=== PATIENT | male | born 1970 | race Caucasian/White ===

== ENCOUNTER 2022-09-10 22:33 | Emergency (ER) | payer OTHER, SELFPAY ==
[2022-09-10 22:36] VITALS: BP 129/79; PULSE 84; RESP 16; TEMP 36.2; O2SAT 99; BMI 25.4
--- NOTE | 2022-09-10 22:49 | DI.RAD.S_ITS ---
PROCEDURE: XR CHEST 1V INDICATIONS: chest pain TECHNIQUE: One view of the chest was acquired. COMPARISON: None. FINDINGS: Surgical changes and devices: None. Lungs and pleura: Lungs are clear. No pleural effusions or pneumothorax. Mediastinum: Mediastinal contours appear normal. Heart size is normal. Bones and chest wall: No suspicious bony lesions. Overlying soft tissues appear unremarkable. IMPRESSION: Portable chest within normal limits. Dictated by: Jonathan So M.D. on 09/10/2022 at 22:25 Approved by: Jonathan So M.D. on 09/10/2022 at 22:25
[2022-09-10 22:51] VITALS: PULSE 75; O2SAT 99
[2022-09-10 22:53] VITALS: BP 141/93; PULSE 80; O2SAT 98
[2022-09-10] MEDS: ASPIRIN 81 MG CHEW TAB 324 MG PO (22:58)
[2022-09-10 23:00] VITALS: PULSE 84; RESP 13; O2SAT 97
[2022-09-10 23:12] LABS: Prothrombin Time 11.1 SECONDS (10.1-12.7)
[2022-09-10 23:13] LABS: Add Manual Diff / Slide Review NO; Basophils Absolute Auto 100 /uL (0-100); Basophils Percent Auto 1.1 % (0-2); Eosinophils Absolute Auto 400 /uL (0-450); Eosinophils Percent Auto 6.1 % (2-4); Hematocrit 41.4 % (41-53); Hemoglobin 13.9 g/dL (13.5-17.5); Lymphocytes Absolute Auto 3200 /uL (1100-4500); Lymphocytes Percent Auto 47.8 % (25-40); Mean Corpuscular HGB Conc 33.5 % (30-36); Mean Corpuscular Hemoglobin 28.2 PG (26-34); Mean Corpuscular Volume 84.1 fL (80-100); Monocytes Absolute Auto 500 /uL (0-900); Monocytes Percent Auto 7.8 % (3-14); Neutrophils Absolute Auto 2500 /uL (1500-7000); Neutrophils Percent Auto 37.2 % (50-75); Platelet Count 384 X10^3/uL (150-400); Red Blood Cell Count 4.92 X10^6/uL (4.5-5.9); Red Cell Distribution Width 15.4 % (11.6-14.8); White Blood Cell Count 6.7 X10^3/uL (4.5-11.0)
[2022-09-10 23:15] LABS: PTT Partial Thromboplastin Tim 32 SECONDS (26-36)
[2022-09-10 23:18] LABS: Alanine Aminotransferase 20 IU/L (<50); Albumin 4.3 g/dL (3.5-5.0); Albumin Globulin Ratio 1.2 (1.0-2.8); Alkaline Phosphatase 96 U/L (38-126); Aspartate Aminotransferase 26 IU/L (17-59); BUN Creatinine Ratio 17.2 (6-22); Bilirubin Total 0.2 mg/dL (0.2-1.3); Blood Urea Nitrogen 11 mg/dL (9-20); Calcium 9.3 mg/dL (8.4-10.2); Carbon Dioxide 29 mmol/L (22-32); Chloride 101 mmol/L (98-107); Creatine Kinase 59 U/L (55-170); Estimated Glomerular Filt Rate > 60 mL/min (>60); Globulin 3.5 g/dL (1.7-4.1); Glucose 112 mg/dL (70-100); HEMOLYSIS < 15 (0-50); Lipase 156 U/L (23-300); Magnesium 2.1 mg/dL (1.6-2.3); Potassium 4.1 mmol/L (3.4-5.1); Sodium 138 mmol/L (137-145); Total Protein 7.8 g/dL (6.3-8.2)
[2022-09-10 23:29] LABS: NT-proBNP (BNP-Adult 18+) < 20 pg/mL (<125); Troponin I < 0.012 ng/mL (0.01-0.034)
[2022-09-10 23:30] VITALS: PULSE 82; RESP 18; O2SAT 96
[2022-09-11] VITALS (14 sets, daily range): BP systolic 109–126; BP diastolic 56–87; PULSE 66–81; RESP 12–19; O2SAT 93–99
[2022-09-11] MEDS: ACETAMINOPHEN 325 MG TABLET 975 MG PO (01:45)
[2022-09-11 02:28] LABS: Troponin I < 0.012 ng/mL (0.01-0.034)
[2022-09-11 02:39] LABS: D Dimer 718 ng/ml (<500)
--- NOTE | 2022-09-11 02:52 | ED.CHESTPAIN ---
HPI - Chest Pain General Chief Complaint: Chest Pain Stated Complaint: Chest pain, SOB Time Seen by Provider: 09/11/22 01:53 Source: patient and family Mode of arrival: Ambulatory Limitations: no limitations History of Present Illness HPI narrative: This is a 52-year-old male former smoker with history of diabetes, hypertension, fibromyalgia who presents with complaint of right-sided chest pain that started last week. Patient states he was having some upper respiratory cold and cough symptoms. For several days that improved but then developed some chest pain he is had a little bit of shortness of breath. He describes the pain is slowly getting worse over time. Movement does not make it any worse deep inhalation does. He states he thinks he had a fever he was sweaty 1 day he would a 99 F by thermometer, he denies any radiation of pain elsewhere. No rash or skin changes. He had nausea last week but has not had any since then. No vomiting. No diarrhea constipation, no swelling in his extremities. Patient is on medications for diabetes, fibromyalgia and hypertension, no dyslipidemia. Quit tobacco approximately 10 years ago, no alcohol, no illicit. No known embolic history no known cardiac history for patient or family. He was living in [place] and drove back recently. He did do a COVID home test which was negative. Related Data Previous Rx's Medication Instructions Recorded prednisone 20 mg tablet 40 mg PO DAILY #10 tabs 09/11/22 Allergies Allergy/AdvReac Type Severity Reaction Status Date / Time No Known Drug Allergies Allergy Verified 09/10/22 22:35 Review of Systems Review of Systems ROS Unobtainable: All systems reviewed & are unremarkable except as noted in HPI and below Patient History Social History Smoking Status: Never smoker Smoking Status: Never smoker Substance Use Type: marijuana Exam Narrative Exam Narrative: GENERAL: Alert and oriented x three, male in mild distress. HEENT: Head normocephalic, atraumatic, EOMI, pupils reactive, face symmetric, moist mucous membranes NECK: Supple, full range of motion CARDIOVASCULAR: Regular rate and rhythm without murmurs, rubs or gallops. No reproducible pain with palpation, no rash or skin changes. No JVD. No edema bilateral lower extremities. RESPIRATORY: Breath sounds equal bilaterally, no wheezes rales or rhonchi. No tachypnea or accessory muscle use. ABDOMEN: Soft, nontender. Normoactive bowel sounds all 4 quadrants. No guarding or rebound, rigidity, no mass : No CVA tenderness EXTREMITIES: Normal range of motion, no clubbing or edema. Neurovascularly intact NEUROLOGICAL: Cranial nerves II through XII grossly intact. Moving all extremities SKIN: Warm, dry, no petechiae, no rashes or lesions. Initial Vital Signs Initial Vital Signs: Vital Signs Temperature 97.2 F L 09/10/22 22:36 Pulse Rate 84 09/10/22 22:36 Respiratory Rate 16 09/10/22 22:36 Blood Pressure 129/79 09/10/22 22:36 Pulse Oximetry 99 09/10/22 22:36 Oxygen Delivery Method Room Air 09/10/22 22:36 Course Orders Ordered: ED Orders 09/10/22 22:49 XR chest 1V Stat EKG-12 Lead Stat 09/10/22 22:55 BNP [NT-proBNP (BNP-Adult 18+)] Stat Complete Blood Count AUTO DIFF Stat Comprehensive Metabolic Panel Stat Lipase Stat Magnesium Stat PTT Partial Thromboplastin Júnior Stat Prothrombin Time INR Stat Troponin & CK Cardiac Panel Stat 09/11/22 01:54 D Dimer Stat 09/11/22 02:00 BNP [NT-proBNP (BNP-Adult 18+)] Stat Trop I [Troponin I] Stat 09/11/22 03:12 CT angio chest PE protocol Stat Discontinued Medications Acetaminophen (Acetaminophen 325 Mg Tablet) 975 mg PO NOW ONE Stop: 09/11/22 01:43 Last Admin: 09/11/22 01:45 Dose: 975 mg Documented By: SB Aspirin (Aspirin 81 Mg Chew Tab) 324 mg PO NOW ONE Stop: 09/10/22 22:50 Last Admin: 09/10/22 22:58 Dose: 324 mg Documented By: ST Vital Signs Vital signs: Vital Signs - 8 hr 09/10/22 22:36 09/10/22 22:51 09/10/22 22:53 Temperature 97.2 F L Pulse Rate 84 75 Respiratory Rate 16 Blood Pressure 129/79 141/93 H Pulse Oximetry 99 99 Oxygen Delivery Method Room Air 09/10/22 22:53 09/10/22 23:00 09/10/22 23:30 Temperature Pulse Rate 80 84 82 Respiratory Rate 13 18 Blood Pressure Pulse Oximetry 98 97 96 Oxygen Delivery Method 09/11/22 00:00 09/11/22 00:30 09/11/22 00:51 Temperature Pulse Rate 75 66 73 Respiratory Rate 14 15 14 Blood Pressure Pulse Oximetry 93 96 96 Oxygen Delivery Method 09/11/22 00:52 09/11/22 00:52 09/11/22 01:00 Temperature Pulse Rate 78 Respiratory Rate Blood Pressure 109/72 116/63 Pulse Oximetry 97 Oxygen Delivery Method 09/11/22 01:00 09/11/22 01:29 09/11/22 01:30 Temperature Pulse Rate 72 73 Respiratory Rate 12 12 Blood Pressure 126/60 Pulse Oximetry 95 97 Oxygen Delivery Method 09/11/22 01:30 09/11/22 02:00 09/11/22 02:00 Temperature Pulse Rate 74 81 Respiratory Rate 14 Blood Pressure 121/69 Pulse Oximetry 97 98 Oxygen Delivery Method 09/11/22 02:30 09/11/22 03:00 09/11/22 03:00 Temperature Pulse Rate 69 72 Respiratory Rate 12 Blood Pressure 111/56 L Pulse Oximetry 99 96 Oxygen Delivery Method 09/11/22 03:37 09/11/22 04:00 09/11/22 04:30 Temperature Pulse Rate 78 80 75 Respiratory Rate 17 19 Blood Pressure Pulse Oximetry 99 98 Oxygen Delivery Method 09/11/22 04:39 09/11/22 04:39 Temperature Pulse Rate 76 Respiratory Rate 16 Blood Pressure 121/87 Pulse Oximetry 97 Oxygen Delivery Method MDM - Chest Pain Lab Data 09/10/22 22:55 09/10/22 22:55 Labs: Lab Results 09/10/22 09/10/22 09/10/22 Range/Units 22:55 22:55 22:55 WBC 6.7 (4.5-11.0) X10^3/uL RBC 4.92 (4.5-5.9) X10^6/uL Hgb 13.9 (13.5-17.5) g/dL Hct 41.4 (41-53) % MCV 84.1 (80-100) fL MCH 28.2 (26-34) PG MCHC 33.5 (30-36) % RDW 15.4 H (11.6-14.8) % Plt Count 384 (150-400) X10^3/uL Neut % (Auto) 37.2 L (50-75) % Lymph % (Auto) 47.8 H (25-40) % Nolan % (Auto) 7.8 (3-14) % Eos % (Auto) 6.1 H (2-4) % Baso % (Auto) 1.1 (0-2) % Neut # (Auto) 2500 (2269-6078) /uL Lymph # (Auto) 3200 (3175-5664) /uL Nolan # (Auto) 500 (0-900) /uL Eos # (Auto) 400 (0-450) /uL Baso # (Auto) 100 (0-100) /uL PT 11.1 (10.1-12.7) SECONDS INR 1.0 (0.9-1.3) APTT 32 (26-36) SECONDS D-Dimer (<500) ng/ml Sodium 138 (137-145) mmol/L Potassium 4.1 (3.4-5.1) mmol/L Chloride 101 (98-107) mmol/L Carbon Dioxide 29 (22-32) mmol/L BUN 11 (9-20) mg/dL Creatinine 0.64 L (0.66-1.25) mg/dL Estimated GFR > 60 (>60) mL/min BUN/Creatinine Ratio 17.2 (6-22) Glucose 112 H (70-100) mg/dL Calcium 9.3 (8.4-10.2) mg/dL Magnesium 2.1 (1.6-2.3) mg/dL Total Bilirubin 0.2 (0.2-1.3) mg/dL AST 26 (17-59) IU/L ALT 20 (<50) IU/L Alkaline Phosphatase 96 (38-126) U/L Total Creatine Kinase 59 (55-170) U/L Troponin I < 0.012 (0.01-0.034) ng/mL NT-Pro-B Natriuret Pep < 20 (<125) pg/mL Total Protein 7.8 (6.3-8.2) g/dL Albumin 4.3 (3.5-5.0) g/dL Globulin 3.5 (1.7-4.1) g/dL Albumin/Globulin Ratio 1.2 (1.0-2.8) Lipase 156 (23-300) U/L 09/10/22 09/11/22 09/11/22 Range/Units 22:55 02:00 02:00 WBC (4.5-11.0) X10^3/uL RBC (4.5-5.9) X10^6/uL Hgb (13.5-17.5) g/dL Hct (41-53) % MCV (80-100) fL MCH (26-34) PG MCHC (30-36) % RDW (11.6-14.8) % Plt Count (150-400) X10^3/uL Neut % (Auto) (50-75) % Lymph % (Auto) (25-40) % Nolan % (Auto) (3-14) % Eos % (Auto) (2-4) % Baso % (Auto) (0-2) % Neut # (Auto) (1615-6236) /uL Lymph # (Auto) (7959-5074) /uL Nolan # (Auto) (0-900) /uL Eos # (Auto) (0-450) /uL Baso # (Auto) (0-100) /uL PT (10.1-12.7) SECONDS INR (0.9-1.3) APTT (26-36) SECONDS D-Dimer 718 H (<500) ng/ml Sodium (137-145) mmol/L Potassium (3.4-5.1) mmol/L Chloride (98-107) mmol/L Carbon Dioxide (22-32) mmol/L BUN (9-20) mg/dL Creatinine (0.66-1.25) mg/dL Estimated GFR (>60) mL/min BUN/Creatinine Ratio (6-22) Glucose (70-100) mg/dL Calcium (8.4-10.2) mg/dL Magnesium (1.6-2.3) mg/dL Total Bilirubin (0.2-1.3) mg/dL AST (17-59) IU/L ALT (<50) IU/L Alkaline Phosphatase (38-126) U/L Total Creatine Kinase (55-170) U/L Troponin I < 0.012 (0.01-0.034) ng/mL NT-Pro-B Natriuret Pep < 20 (<125) pg/mL Total Protein (6.3-8.2) g/dL Albumin (3.5-5.0) g/dL Globulin (1.7-4.1) g/dL Albumin/Globulin Ratio (1.0-2.8) Lipase (23-300) U/L Imaging Data Chest x-ray: Radiologist's Impression: [address] [id number] ReportSigned Patient: Callie Meyer MMR#: [id number]: 05/05/1979Acct:[id number]/Sex: 43 / FDate of Service: 09/11/22Loc: EDAccession Number: [id number]? ? Procedure: XR chest 1V Ordering Provider: Kira Pham D.O. PROCEDURE:? XR CHEST 1V ? INDICATIONS:? chest pain ? TECHNIQUE:? One view of the chest was acquired.? ? COMPARISON:? [facility], , XR CHEST 2V, 03/10/2021, 13:25. ? FINDINGS:? ? Surgical changes and devices:? None.? ? Lungs and pleura:? Lungs are clear.? No pleural effusions or pneumothorax.? ? Mediastinum:? Mediastinal contours appear normal.? Heart size is normal.? ? Bones and chest wall:? No suspicious bony lesions.? Overlying soft tissues appear unremarkable.? ? ? IMPRESSION:? ? Portable chest within normal limits.? Dictated by: Jonathan So M.D. on 09/11/2022 at 0:59? ?? Approved by: Jonathan So M.D. on 09/11/2022 at 0:59?? CT scan - chest: Radiologist's Impression: No evidence of pulmonary emboli, normal thoracic aorta and great vessels, heart size within normal limits, RV/LV ratio normal. Mild bronchial wall thickening present, lungs are clear there is no pleural effusion. Visualized upper abdomen is unremarkable compression fracture involving T7 vertebral body with approximately 60% loss of the height and a mild kyphosis of the spine at this level, given adjacent degenerative findings likely to be chronic in etiology. ECG Data Attestation: I personally reviewed and interpreted this ECG as follows: Prior ECG tracings: not available for review Interpretation: Normal sinus rhythm, left axis deviation, right bundle-branch block with a rate 82, OH 156, QRS of 146 and QTC of 457. No acute ST elevation or depression appreciated. Was able to obtain an EKG from 09/10/2022 at 4:40 p.m. patient had sinus rhythm right bundle-branch block appears to be new when compared to EKG from 2013 according to [facility] records I do not have access to this but there are no changes between today's EKG and yesterday's that was faxed over from [facility]. [facility] Narrative Medical decision making narrative: This is a 52-year-old male who presents with a complaint of chest for a week initially had some upper respiratory viral illness type symptoms, he did do a home test for COVID, he is had increasing right-sided chest pain with some shortness of breath he states it is resolved at this time. He had a temp of 99? he does not have any reproducible chest pain or changes consistent with shingles. Cardiac workup is negative for troponin x2, no acute EKG changes from yesterday to today with comparison EKG from outside facility. CBC shows a normal white count, hemoglobin platelets 384 neutrophils are low at 37 lymphocytes are elevated. CMP shows normal electrolytes, renal function glucose of 112 with negative LFTs, BNP and negative lipase. Dimer is 718 and when age adjusted is positive. CT angio was obtained after discussion with patient. No pulmonary emboli mild diffuse bronchial wall thickening is seen, patient also has compression fracture at T7 likely chronic based on surrounding findings. Discussed findings with patient he has had a recent upper respiratory viral infection we will give short course of steroid as he is not having a lot of cough but maybe helpful for his discomfort, Tylenol or NSAIDs for pain. Discharge Plan Departure Patient Disposition: Home Clinical Impression: Chest pain, Compression fracture of T7 vertebra Instructions: DI for Atypical Chest Pain Activity Restrictions/Additional Instructions: Your work up today does show some mild bronchial wall thickening, this can be seen with bronchitis. Your imaging did show a compression fracture at T7 (thoracic vertebrae #7) that appears to be old. You may take oral steroid once daily until gone. You can use the inhaler you were prescribed at [facility] ED Prescription printed. Please return for worsening symptoms, new shortness of breath, passing out, new swelling in her extremities coughing up blood or other new or concerning changes. Prescriptions: New prednisone 20 mg tablet 40 mg PO DAILY Qty: 10 0RF Stand Alone Forms: Patient Portal/API
[2022-09-11 02:53] LABS: NT-proBNP (BNP-Adult 18+) < 20 pg/mL (<125)
--- NOTE | 2022-09-11 03:12 | DI.CT.S_ITS ---
PROCEDURE: CT ANGIO CHEST PE PROTOCOL INDICATIONS: pleuritic chest pain x 1 week, drove back from [place], +dime TECHNIQUE: After the administration of intravenous contrast, 2 mm thick sections acquired from the pulmonary apices to the posterior costophrenic angles. MIP reformats of the arterial vasculature were utilized. For radiation dose reduction, the following was used: automated exposure control, adjustment of mA and/or kV according to patient size. COMPARISON: None. FINDINGS: Image quality: Excellent. Pulmonary arteries: Pulmonary arteries are normal in size, and demonstrate no intraluminal filling defects to suggest central pulmonary embolism. Lungs and pleura: Lungs are clear. No pleural effusions or pneumothorax. Central and peripheral airways are patent. Mild generalized bronchial wall thickening noted Mediastinum: Heart size is normal, without pericardial effusion. No mediastinal or hilar adenopathy. Thoracic aorta is normal in caliber and enhancement. Esophagus is normal in caliber, without hiatal hernia. Bones and chest wall: No suspicious bony lesions. Ribs and thoracic spine appear intact throughout. Thyroid gland unremarkable. No axillary or supraclavicular adenopathy. T7 compression fracture appears old Abdomen: Visualized upper abdominal solid organs appear normal in the early arterial phase of enhancement. IMPRESSION: No evidence of pulmonary embolism, aortic dissection or aneurysm. Mild equivocal diffuse bronchial wall thickening may be reactive. Note: Final report is concordant with preliminary interpretation by [facility] Approved by: Stew Denton M.D. on 09/11/2022 at 9:09
== END 2022-09-11 04:43 | disposition home or self-care (01) ==
PROVIDERS: Emergency Provider Emergency Medicine
DX: R07.9 Chest pain, unspecified (principal); S22.060A Wedge compression fracture of T7-T8 vertebra, initial encounter for closed fracture
CPT/HCPCS: 36415; 71045; 71275; 80053; 82550; 83690; 83735; 83880; 84484; 85025; 85379; 85610; 85730; 93005; 99284; Q9967